=== PATIENT | female | born 1955 | race Caucasian/White ===

== ENCOUNTER → 2019-09-14 10:38 | Outpatient (BNVA) | payer MEDICARE, OTHER, SELFPAY | PROVIDERS: Family Provider Registered Nurse; PCP Registered Nurse; Visit Provider Registered Nurse | DX: E11.9 Type 2 diabetes mellitus without complications (principal) | CPT/HCPCS: 83036 ==

== ENCOUNTER → 2019-10-26 11:11 | Outpatient (BNVA) | payer MEDICARE, OTHER, SELFPAY | PROVIDERS: Family Provider Registered Nurse; PCP Registered Nurse; Visit Provider Registered Nurse | DX: E11.69 Type 2 diabetes mellitus with other specified complication (principal); E78.5 Hyperlipidemia, unspecified; I10 Essential (primary) hypertension; I48.20 Chronic atrial fibrillation, unspecified; Z95.810 Presence of automatic (implantable) cardiac defibrillator; Z79.4 Long term (current) use of insulin; R10.9 Unspecified abdominal pain; R10.11 Right upper quadrant pain; M54.5 Low back pain; E11.65 Type 2 diabetes mellitus with hyperglycemia | CPT/HCPCS: 80053; 81000; 82150; 83690 ==

== ENCOUNTER 2019-11-04 08:19 | Outpatient (CLI) | payer MEDICARE, OTHER, SELFPAY ==
[2019-11-04] MEDS: iohexol 300 mg/mL 50 mL Btl PO (09:18)
--- NOTE | 2019-11-04 09:30 | CT_ITS ---
WS: [id number] CT ABDOMEN TECHNIQUE: Noncontrast CT of the abdomen with coronal and sagittal reformatted images. CLINICAL INFORMATION: RUQ pain COMPARISON: None. DLP: 1014.[address] scans at [facility] use at least one of these dose optimization techniques: automat ed exposure control; mA and/or kV adjustment per patient size (includes targeted exams where dose is matched to clinical indication); or iterative reconstruction. FINDINGS: Noncontrast liver is normal. Cholecystectomy clips. Adrenal glands are normal. Mild bilateral renal c ortical atrophy. Incidental calcified distal azygo esophageal lymph node. Lung bases are well aerated . Noncontrast pancreas is normal. Adrenal glands are normal. Mild bilateral renal cortical atrophy. No hydronephrosis. Normal caliber abdominal aorta. Aortic calcification. Visualized colon is normal in appearance. Normal appendix. No evidence of small or large bowel obstruction. No abdominal lymphadenopathy. Small fat-containing umbilical hernia. CT/CT abdomen wo con [id number] IMPRESSION: 1. Noncontrast liver is normal. Prior cholecystectomy. 2. Lung bases are well aerated. 3. Normal caliber abdominal aorta. No abdominal lymphadenopathy. 4. Mild bilateral renal cortical atrophy. No hydronephrosis. 5. Incidental fat-containing umbilical hernia. 6. No acute abdominal findings.
== END 2019-11-04 08:20 | disposition home or self-care (01) ==
LOC: RADWPI 08:24
PROVIDERS: Family Provider Registered Nurse; PCP Registered Nurse; Visit Provider Registered Nurse
DX: R10.11 Right upper quadrant pain (principal); N26.1 Atrophy of kidney (terminal); K42.9 Umbilical hernia without obstruction or gangrene
CPT/HCPCS: 74150; Q9967

== ENCOUNTER → 2020-03-28 14:14 | Outpatient (BNVA) | payer MEDICARE, OTHER, SELFPAY | PROVIDERS: Family Provider Registered Nurse; PCP Registered Nurse; Visit Provider Registered Nurse | DX: E11.65 Type 2 diabetes mellitus with hyperglycemia (principal); Z79.4 Long term (current) use of insulin; F41.9 Anxiety disorder, unspecified | CPT/HCPCS: 83036 ==

== ENCOUNTER → 2020-10-26 09:25 | Outpatient (BNVA) | payer MEDICARE, OTHER, SELFPAY | PROVIDERS: Family Provider Registered Nurse; PCP Registered Nurse; Visit Provider Registered Nurse | DX: E11.65 Type 2 diabetes mellitus with hyperglycemia (principal); E78.5 Hyperlipidemia, unspecified; I10 Essential (primary) hypertension; F41.9 Anxiety disorder, unspecified; E11.69 Type 2 diabetes mellitus with other specified complication; Z79.4 Long term (current) use of insulin; Z79.899 Other long term (current) drug therapy | CPT/HCPCS: 80053; 80061; 81000; 83036; 85025 ==

== ENCOUNTER → 2020-11-30 10:21 | Outpatient (BNVA) | payer MEDICARE, OTHER, SELFPAY | PROVIDERS: Family Provider Registered Nurse; PCP Registered Nurse; Visit Provider Registered Nurse | DX: R50.9 Fever, unspecified (principal); J06.9 Acute upper respiratory infection, unspecified | CPT/HCPCS: 87635 ==

== ENCOUNTER 2021-05-25 14:24 | Outpatient (CLI) | payer MEDICARE, OTHER, SELFPAY ==
--- NOTE | 2021-05-25 14:15 | USCV_ITS ---
Myah Bonds Age: 66 Gender: F : 1955 Exam Date: 05/25/2021 14:37 Ordering Phys: Celine Valadez MD ([email or web address]) Technologist: FRANCISCO [place] [facility] [place]: DYSPNEA BP: 136 / 80 HR: 94 Rhythm: Sinus Technical Quality: Technically difficult study MEASUREMENTS (Male / Female) Normal Values 2D ECHO LV Diastolic Diameter PLAX 3.3 cm 4.2 - 5.9 / 3.9 - 5.3 cm LV Systolic Diameter PLAX 2.2 cm IVS Diastolic Thickness 1.1 cm 0.6 - 1.0 / 0.6 - 0.9 cm IVS Systolic Thickness 1.4 cm LVPW Diastolic Thickness 1.2 cm 0.6 - 1.0 / 0.6 - 0.9 cm LVPW Systolic Thickness 1.4 cm RV Chamber Size 2.5 cm LVOT Diameter 2.0 cm LV Ejection Fraction 2D Teich 64.1 % LV Ejection Fraction MOD 2C 60.8 % LV Ejection Fraction 2C AL 62.5 % LA Diameter 4.0 cm LA Width 3.5 cm LA Height 4.9 cm RA Width 3.5 cm RA Height 4.7 cm Aorta at Sinotubular Diameter 2.1 cm M-MODE Aortic Annulus Diameter 2.2 cm LA Ao Ratio MM 1.9 MV E Point Septal Separation 0.2 cm DOPPLER AV Peak Velocity 108.0 cm/s LVOT Peak Velocity 85.0 cm/s AV Area Cont Eq vti 2.7 cm squared AV Area Cont Eq pk 2.5 cm squared MV Area PHT 5.0 cm squared MV E' Velocity 73.0 cm/s Mitral E to MV E' Ratio 11.9 Mitral E to LV E' Lateral Ratio 12.0 Mitral E to LV E' Septal Ratio 11.8 TV Peak E Velocity 64.0 cm/s Right Atrial Pressure 3.0 mmHg PV Peak Velocity 105.0 cm/s RV Acceleration Time 0.1 s RV Ejection Time 0.3 s RV AcT/ET 0.3 FINDINGS Left Ventricle Normal left ventricular size and systolic function, EF 64 %. No regional wall motion abnormalities. Mild concentric left ventricular hypertrophy Right Ventricle Normal right ventricular size and systolic function. Catheter/pacemaker wire in the right ventricular cavity. Right Atrium Mildly increased right atrial size. Pacemaker/defibrillator wire is noted Left Atrium Mildly increased left atrial size. Mitral Valve Thickened mitral valve. Mild-moderate mitral valve regurgitation. Aortic Valve Thickened aortic valve. Tricuspid Valve No gross abnormalities noted Pulmonic Valve Pulmonic valve not well visualized. Pericardium No pericardial effusion. Aorta Normal aortic annulus size. CONCLUSIONS Normal left ventricular size and systolic function, EF 64 %. No regional wall motion abnormalities. Mild concentric left ventricular hypertrophy Mild biatrial enlargement. Thickened mitral valve. Mild-moderate mitral valve regurgitation. Thickened aortic valve. Pacemaker/defibrillator wire in the right atrium and right ventricle There is no pericardial effusion. Compared to the study from 04/16/2013 the mitral regurgitation appears to be new Dr Celine Valadez MD FACC (Electronically Signed) Final Date: 26 May 2021 14:49 S
== END 2021-05-25 14:25 | disposition home or self-care (01) ==
LOC: RAD 14:28
PROVIDERS: PCP Registered Nurse; Visit Provider Internal Medicine Cardiovascular Disease
DX: I50.32 Chronic diastolic (congestive) heart failure (principal); R06.00 Dyspnea, unspecified; I08.0 Rheumatic disorders of both mitral and aortic valves; Z95.0 Presence of cardiac pacemaker
CPT/HCPCS: 93306

== ENCOUNTER → 2021-05-26 08:27 | Outpatient (BNVA) | payer MEDICARE, OTHER, SELFPAY | PROVIDERS: PCP Registered Nurse; Visit Provider Registered Nurse | DX: E11.65 Type 2 diabetes mellitus with hyperglycemia (principal); Z79.4 Long term (current) use of insulin | CPT/HCPCS: 80053; 83036 ==

== ENCOUNTER → 2021-07-18 10:39 | Outpatient (BNVA) | payer OTHER, MEDICARE, SELFPAY | PROVIDERS: PCP Registered Nurse; Visit Provider Emergency Medicine | DX: M79.672 Pain in left foot (principal) | CPT/HCPCS: 73630 ==

== ENCOUNTER 2021-07-19 10:38 | Outpatient (CLI) | payer MEDICARE, OTHER, SELFPAY ==
--- NOTE | 2021-07-19 10:52 | XR_ITS ---
WS: [id number] Left foot, 3 views, 07/19/2021 Clinical Data: acute left foot pain Comparison: Left foot, 07/18/2021. Findings: The base of the left third proximal phalanx does not show definite fracture. There is minimal article irregularity in base of the left fourth toe proximal phalanx. This remains suspicious for nondisplac ed fracture. The remainder of the left foot is unremarkable. XR/XR foot LT min 3V* [id number] Impression: Possible fracture of the left fourth toe proximal phalanx.
== END 2021-07-19 10:39 | disposition home or self-care (01) ==
LOC: RAD 10:41
PROVIDERS: PCP Registered Nurse; Visit Provider Emergency Medicine
DX: M79.672 Pain in left foot (principal)
CPT/HCPCS: 73630

== ENCOUNTER 2021-09-11 14:34 | Outpatient (CLI) | payer MEDICARE, OTHER, SELFPAY ==
--- NOTE | 2021-09-11 15:00 | CT_ITS ---
WS: [id number] CT HEAD NONCONTRAST HISTORY: R29.6 - Repeated falls TECHNIQUE: Contiguous axial imaging performed through the brain in 2.5 mm imaging. Bone and soft tiss ue windows. Sagittal and coronal reformats reviewed. All CT scans at [facility] [place] use at least one of these dose optimization techniques: automated exposure control; mA and/or kV adjustment per pa tient size (includes targeted exams where dose is matched to clinical indication); or iterative recon struction. DLP: 933.09 mGy.cm COMPARISON: 01/01/2013 No acute intracranial hemorrhage, midline shift or mass effect. Mild atrophy and mild small vessel ischemic changes in the white matter. No prior infarct. Ventricles: Normal size with no hydrocephalus. No inferior displacement of the cerebellar tonsils. Paranasal sinuses: As visualized are clear. Mastoid air cells: Well pneumatized. Calvarium and scalp: Skull is intact with no soft tissue edema or swelling. CT/CT head wo con* [id number] IMPRESSION: 1. No acute intracranial hemorrhage or edema. 2. Mild atrophy and mild small vessel ischemic disease.
== END 2021-09-11 14:35 | disposition home or self-care (01) ==
LOC: RAD 14:36
PROVIDERS: PCP Registered Nurse; Visit Provider Registered Nurse
DX: R29.6 Repeated falls (principal); R27.8 Other lack of coordination
CPT/HCPCS: 70450

== ENCOUNTER → 2021-09-27 10:14 | Outpatient (BNVA) | payer MEDICARE, OTHER, SELFPAY | PROVIDERS: PCP Registered Nurse; Visit Provider Internal Medicine Cardiovascular Disease | DX: I11.0 Hypertensive heart disease with heart failure (principal); I50.32 Chronic diastolic (congestive) heart failure; I48.20 Chronic atrial fibrillation, unspecified; Z79.899 Other long term (current) drug therapy; I27.20 Pulmonary hypertension, unspecified; E11.69 Type 2 diabetes mellitus with other specified complication; E78.5 Hyperlipidemia, unspecified; Z79.4 Long term (current) use of insulin | CPT/HCPCS: 99214 ==

== ENCOUNTER → 2022-02-16 08:55 | Outpatient (BNVA) | payer MEDICARE, SELFPAY | PROVIDERS: PCP Registered Nurse; Visit Provider Internal Medicine Cardiovascular Disease | DX: Z45.010 Encounter for checking and testing of cardiac pacemaker pulse generator [battery] (principal) | CPT/HCPCS: 93280 ==

== ENCOUNTER → 2022-02-26 09:07 | Outpatient (BNVA) | payer MEDICARE, SELFPAY | PROVIDERS: PCP Registered Nurse; Visit Provider Registered Nurse | DX: E11.65 Type 2 diabetes mellitus with hyperglycemia (principal); Z79.4 Long term (current) use of insulin; I50.32 Chronic diastolic (congestive) heart failure; E66.01 Morbid (severe) obesity due to excess calories; Z68.41 Body mass index [BMI] 40.0-44.9, adult | CPT/HCPCS: 80053; 80061; 83036; 85025 ==

== ENCOUNTER → 2022-04-11 09:53 | Outpatient (BNVA) | payer MEDICARE, OTHER, SELFPAY | PROVIDERS: PCP Registered Nurse; Visit Provider Internal Medicine Cardiovascular Disease | DX: I11.0 Hypertensive heart disease with heart failure (principal); I50.32 Chronic diastolic (congestive) heart failure; Z95.810 Presence of automatic (implantable) cardiac defibrillator; E11.69 Type 2 diabetes mellitus with other specified complication; Z79.84 Long term (current) use of oral hypoglycemic drugs; E78.5 Hyperlipidemia, unspecified; I48.20 Chronic atrial fibrillation, unspecified | CPT/HCPCS: 93005; 99214 ==

== ENCOUNTER → 2022-08-01 15:09 | Outpatient (BNVA) | payer MEDICARE, OTHER, SELFPAY | PROVIDERS: PCP Registered Nurse; Visit Provider Registered Nurse | DX: R39.9 Unspecified symptoms and signs involving the genitourinary system (principal) | CPT/HCPCS: 81000; 87077; 87086; 87184 ==

== ENCOUNTER → 2022-08-27 09:32 | Outpatient (BNVA) | payer MEDICARE, OTHER, SELFPAY | PROVIDERS: PCP Registered Nurse; Visit Provider Registered Nurse | DX: E11.65 Type 2 diabetes mellitus with hyperglycemia (principal); Z79.4 Long term (current) use of insulin | CPT/HCPCS: 80053; 83036 ==

== ENCOUNTER → 2022-10-30 09:32 | Outpatient (BNVA) | payer MEDICARE, OTHER, SELFPAY | PROVIDERS: PCP Registered Nurse; Visit Provider Specialist | DX: I48.91 Unspecified atrial fibrillation (principal); Z95.810 Presence of automatic (implantable) cardiac defibrillator; E78.5 Hyperlipidemia, unspecified; I11.0 Hypertensive heart disease with heart failure; I50.32 Chronic diastolic (congestive) heart failure; Z79.01 Long term (current) use of anticoagulants | CPT/HCPCS: 99214 ==

== ENCOUNTER 2023-01-24 19:05 | Inpatient (IN) | payer MEDICARE, OTHER, SELFPAY ==
[2023-01-24 19:55] VITALS: BMI 40.1
[2023-01-24 21:16] LABS: Glucose Point of Care 122 mg/dL (70-110)
[2023-01-24 21:32] VITALS: BP 128/82; PULSE 98; RESP 19; TEMP 36.7; O2SAT 97
[2023-01-24 21:54] VITALS: BP 128/82; PULSE 105; RESP 15; O2SAT 95
--- NOTE | 2023-01-24 21:58 | PM.HP ---
Providers/Chief Complaint Admitting Physician: Erasto Blanton MD Primary Care Provider: GABRIELA Mae Chief Complaint: a-fib with RVR,Sepsis History of Present Illness Myah Bonds is a 67 year old female with history of type 2 diabetes diabetes, chronic paroxysmal atrial fibrillation not on anticoagulation secondary to history of bleeding, hypertension, morbid obesity ischemic cardiomyopathy s/p ICD hyperlipidemia congestive heart failure presented with complaint of nausea vomiting and weakness off and on since 2 weeks. She has not been able to do her daily chores recently. She was diagnosed with COVID-19 infection 3 weeks ago and since then started having the symptoms. She also complained of urinary discomfort but denied any fever chest pain shortness of breath or diarrhea. Review of Systems Narrative: As per HPI Medications/Allergies Home Medications Medication Instructions Recorded Confirmed Last Taken Type aspirin 81 mg tablet,delayed 81 mg PO QDAY 06/01/19 01/24/23 Unknown History release (Adult Aspirin Regimen) tramadol 50 mg tablet 50 mg PO BID PRN pain 5 days #10 06/23/21 01/24/23 Unknown Rx tabs lorazepam 0.5 mg tablet (Ativan) 0.5 mg PO DAILY PRN anxiety 90 09/19/21 01/24/23 Unknown Rx days #30 tabs hydroxyzine HCl 25 mg tablet 25 mg PO TID PRN itching 10 days 12/26/21 01/24/23 Unknown Rx #30 tabs amlodipine 10 mg tablet 10 mg PO QDAY #90 tabs 02/12/22 01/24/23 Unknown Rx furosemide 20 mg tablet (Lasix) 20 mg PO QAM PRN edema 30 days #30 02/26/22 01/24/23 Unknown Rx tabs pen needle, diabetic 32 gauge x See Rx Instructions .Route 02/26/22 01/24/23 Unknown Rx /32 (BD Ultra-Fine Joelle Pen .COMPLEX #100 ea Needle) potassium chloride 20 mEq oral 20 meq PO QDAY PRN hypokalemia 30 02/26/22 01/24/23 Unknown Rx packet days #30 ea lisinopril 40 mg tablet 40 mg PO QDAY #90 tabs 08/21/22 01/24/23 Unknown Rx clopidogrel 75 mg tablet (Plavix) 75 mg PO QDAY #90 tabs 09/07/22 01/24/23 Unknown Rx liraglutide 0.6 mg/0.1 mL (18 mg/3 1.2 mg (0.2 mL) SUBCUT Q24H 90 09/27/22 01/24/23 Unknown Rx mL) subcutaneous pen injector days #18 mL (Victoza 2-Joseph) metoprolol tartrate 50 mg tablet 75 mg PO BID #270 tabs 10/30/22 01/24/23 Unknown Rx atorvastatin 10 mg tablet 10 mg PO BEDTIME 01/24/23 01/24/23 Unknown History propafenone 225 mg tablet 225 mg PO Q8H 01/24/23 01/24/23 Unknown History sertraline 100 mg tablet 100 mg PO DAILY 01/24/23 01/24/23 Unknown History sitagliptin phosphate 100 mg tablet 100 mg PO DAILY 01/24/23 01/24/23 Unknown History Allergies Allergy/AdvReac Type Severity Reaction Status Date / Time Penicillins Allergy Intermediate blisters Verified 01/17/23 09:00 PFSH Acute PFSH: Medical History Anxiety Benign essential HTN Chronic episodic atrial fibrillation Patient has a history of bleeding complications with warfarin. She blood from the nose, GI tract and in the skin. She decided not to try any other anticoagulant Chronic neck pain Congestive heart failure Diabetes type 2, controlled Heart failure, diastolic, chronic High risk medication use History of stroke reports 8 years ago managed by dr. Rory Gallardo due to type 2 diabetes mellitus ICD (implantable cardioverter-defibrillator) in place Pulmonary hypertension Sleep apnea Surgical History History of permanent cardiac pacemaker placement Hx of section Hx of cholecystectomy Family History Sister Cancer Other Hypertension Denies family history of Diabetes CAD (coronary artery disease) Clotting disorder Dementia Chronic kidney disease (CKD) Suicide Anesthesia complication Bleeding disorder Lung disease Stroke Social History Smoking and tobacco status: never smoked Alcohol intake: never Substance/Drug Use: never Adopted: No Caregiver/support person: No Lives independently: Yes service: No Current occupational status: employed and retired Do you think of yourself as: Straight/Heterosexual Current gender identity: Female Vitals/I&O/Wt Last Vital Signs Temp 98.0 F 01/24/23 21:32 Pulse 105 H 01/24/23 21:54 Resp 15 01/24/23 21:54 BP 128/82 01/24/23 21:54 Pulse Ox 95 01/24/23 21:54 O2 Del Method Room Air 01/24/23 21:32 01/24/23 01/24/23 01/24/23 06:59 14:59 22:59 Output Total 220 / 220 Balance -220 / -220 Weight last 48 hrs Weight 99.427 kg Weight 102.92 kg Physical Exam Narrative: She is alert awake oriented x3 morbidly obese not in acute distress Cardiovascular normal heart sounds irregular rhythm, ICD in place Chest clear to auscultation bilaterally Abdomen soft nontender nondistended normal bowel sounds Extremities trace pitting edema and tenderness in left lower extremity present. A&P Assessment and plan (1) Nausea and vomiting: (2) Generalized weakness: Plan 67-year-old female with multiple medical problems presented with nausea vomiting and weakness since 3 weeks post COVID-19 infection likely secondary to gastritis due to COVID-19 infection. Will give IV Zofran 4 mg every 8 hours IV pantoprazole 40 mg every 12 hours Cardiac diet for now Atrial fibrillation with rate controlled ,resume home medications Subcutaneous Lovenox 40 mg daily for DVT prophylaxis We will repeat UA and then discuss about IV antibiotics for UTI. Needs PT eval in a.m. for generalized weakness. Attestations Medical Necessity Statement*: She might need continued hospitalization for 2 midnights for acute gastritis and UTI for IV antibiotics physical therapy for generalized weakness Time Spent in Patient Care: 30 minutes Coding Level of Care Code Acute Code for Chg Fwd Diagnoses Nausea and vomiting R11.2 Generalized weakness R53.1 Time Spent (min) 30
[2023-01-24 22:00] VITALS: PULSE 95
[2023-01-24] MEDS: pantoprazole 40 mg SDV IVP (22:14)
[2023-01-24] MEDS: sodium chloride 0.9% 1,000 ML 70 ML IV (22:14)
[2023-01-24] MEDS: propafenone 150 mg Tablet 225 MG PO (22:14)
[2023-01-24] MEDS: enoxaparin 40 mg/0.4 mL Syringe SUBCUT (22:14)
[2023-01-25] VITALS (9 sets, daily range): BP systolic 111–143; BP diastolic 65–83; PULSE 94–136; RESP 19–24; TEMP 36.4–37.3; O2SAT 95–96
[2023-01-25] MEDS: propafenone 150 mg Tablet 225 MG PO ×3 (05:12→20:50)
[2023-01-25 05:22] LABS: Basophils # 0.1 10^3/uL (0.0-0.1); Basophils % 0.3 %; Eosinophils # 0.1 10^3/uL (0.0-0.8); Eosinophils % 0.9 %; Hematocrit 34.6 % (36-47); Lymphocytes # 1.7 10^3/uL (0.8-4.8); Lymphocytes % 11.3 %; Mean Corpuscular HGB Conc 32.9 g/dL (30-55); Mean Corpuscular Hemoglobin 29.5 pg (27-33); Mean Corpuscular Volume 89.4 fl (85-98); Mean Platelet Volume 9.1 fL (7.4-10.4); Monocytes % 6.5 %; Neutrophils # 12.05 10^3/uL (1.8-7.7); Neutrophils % 80.5 %; Nucleated Red Blood Cells % 0 %; Platelet Count 311 10^3/cmm (157-399); Red Blood Count 3.87 10^6/uL (3.85-5.65); White Blood Count 14.98 10^3/uL (3.29-11.43)
[2023-01-25 05:45] LABS: Alanine Aminotransferase 12 U/L (0-33); Albumin Level 3.1 g/dL (3.5-5.2); Alkaline Phosphatase 75 U/L (35-105); Anion Gap 15.7 (5-19); Aspartate Amino Transferase 13 U/L (0-32); Blood Urea Nitrogen 12 mg/dL (8-23); Calcium 8.2 mg/dL (8.5-10.5); Carbon Dioxide 22 mmol/L (22-29); Chloride 104 mmol/L (98-107); Creatinine Clr Calc Pharmacy 78.5957; Globulin 2.2 g/dL (1.3-4.6); Glomerular Filtration Rate 83.7 mL/min (90-130); Glucose 146 mg/dL (65-115); Magnesium 1.6 mg/dL (1.7-2.3); Osmolality Calculated 288 mOsm/kg (285-295); Potassium 3.7 mmol/L (3.5-5.1); Sodium 138 mmol/L (136-145); Total Bilirubin 0.5 mg/dL (0.15-1.2); Total Protein 5.3 g/dL (6.6-8.7)
[2023-01-25 05:53] LABS: NT Pro B Type Natriuretic Pept 2711 pg/mL (0-125)
[2023-01-25 06:39] LABS: Glucose Point of Care 147 mg/dL (70-110)
[2023-01-25 08:31] LABS: Add Urine Microscopic? NO; Charge for UA Resulting for Rev
--- NOTE | 2023-01-25 08:54 | PC.CHAP ---
Pastoral Care Encounter/Spiritual Assessment Type of Contact [] Declined event sales manager visit [] Patient/Family/Request visit [] Outpatient visit [] Follow-up visit [] Physician referral [] Code/Alert [x] Routine visit [] Staff referral [] Actively dying [] Patient sleeping [] Family support [] [] Out of room [] Palliative care [] [] Receiving care in room [] Pre-surgical visit [] Trauma [] Long length of stay [] ICU visit [] Other: Relational/Emotional Strength [x] Patient feels connected with others/family/visitors/staff [] Distress [] Loneliness/isolation [] Abandonment Spirituality of Patient [x] Person of Beba [] Attends Mormonism of their Beba [x] Believes in Prayer [] Reads Bible or Mosque materials [] There are Spiritual issues to be addressed Contract Accountant Interventions [x] Prayer [] Active listening [x] Non-anxious presence [x] Spiritual/emotional support [] Crisis/trauma care [] Spiritual counseling [] Bereavement support [] Provided bereavement packet [] Provided Bible/devotional materials [] Provided toy/stuffed animal, coloring book to patient or family member [] Provided Communion [] Anointing/[place] [] Salvation [x] Completed spiritual assessment [] Other: Impact on Illness or Injury [] Angry [] Fearful [] Anxious [] Often cries [] Exhaustion [] Unable to work [] Unable to attend lutheran [] Unable to walk/stand [] Unable to read [] Unable to drive [] Unable to eat/drink [] Unable to sleep [] Unable to be with family [] Patient intubated [] Other: Summary Time spent with patient 5 min
[2023-01-25 08:58] LABS: Bilirubin Urine Neg (Negative); Blood Urine Neg (Negative); Glucose Urine UA Norm (Normal); Ketones Urine 1+ (Negative); Leukocyte Esterase Urine Negative (Negative); Nitrate Urine Negative (Negative); Protein Urine Neg (Negative); Specific Gravity, Urine 1.015 (1.005-1.030); Urine Appearance Clear (CLEAR); Urine Color Yellow (Yellow); Urobilinogen Urine Norm (Negative); pH Urine 5 (5-7)
--- NOTE | 2023-01-25 10:22 | P.PN_ITS ---
Subjective Subjective: This morning patient is doing well Heart rate fluctuating between 1 20-1 30s I will increase her metoprolol dose Continue Rythmol Vitals/I&O/Wt Last Vital Signs Temp 98.2 F 01/25/23 08:00 Pulse 123 H 01/25/23 08:00 Resp 23 H 01/25/23 04:00 BP 131/83 01/25/23 08:00 Pulse Ox 96 01/25/23 08:00 O2 Del Method Room Air 01/25/23 08:00 01/24/23 01/25/23 01/25/23 22:59 06:59 14:59 Intake Total 680 / 680 120 / 120 Output Total 220 / 220 500 / 720 Balance -220 / -220 180 / -40 120 / 120 Weight last 48 hrs Weight 101.333 kg Weight 99.427 kg Weight 102.92 kg Physical Exam Narrative: Patient is awake and alert Sitting at the bedside Heart rate 120s A-fib RVR Hemodynamic stable Currently normal Nonfocal exam Pleasant cooperative No sign of fluid overload Data 01/25/23 05:10 01/25/23 05:10 A&P Assessment and plan (1) Generalized weakness: (2) Nausea and vomiting: (3) Bronchitis due to COVID-19 virus: (4) Atrial fibrillation: (5) Cough: (6) Morbid obesity with BMI of 40.0-44.9, adult: (7) Pulmonary hypertension: (8) Diabetes type 2, controlled: Qualifiers: Diabetes mellitus shelter insulin use: with extermination inspector use Diabetes mellitus complication status: with hyperglycemia Qualified Code(s): E11.65 - Type 2 diabetes mellitus with hyperglycemia; Z79.4 - [facility] (current) use of insulin (9) ICD (implantable cardioverter-defibrillator) in place: (10) Benign essential HTN: Plan A-fib RVR I will increase the dose of metoprolol 100 mg twice daily Continue Rythmol Patient follows up with Dr. Valadez outpatient -19 3 weeks ago Afebrile not requiring oxygen UTI: Continue antibiotic Congestive heart failure without acute exacerbation Patient has underlying pulm hypertension For type 2 diabetes add sliding scale discontinue liraglutide Plan to discharge her over the weekend if heart rate remains stable Full code Check magnesium level I will decrease the dose of lisinopril Attestations Medical Necessity Statement*: Continue medical management Diagnoses Generalized weakness R53.1 Nausea and vomiting R11.2 Bronchitis due to COVID-19 virus U07.1; J40 Atrial fibrillation I48.91 Cough R05.9 Morbid obesity with BMI of 40.0-44.9, adult E66.01; Z68.41 Pulmonary hypertension I27.20 Diabetes type 2, controlled E11.65; Z79.4 Diabetes mellitus shelter insulin use: with shelter use Diabetes mellitus complication status: with hyperglycemia ICD (implantable cardioverter-defibrillator) in place Z95.810 Benign essential HTN I10
[2023-01-25] MEDS: amlodipine 10 mg Tablet PO (10:34)
[2023-01-25] MEDS: pneumococcal (23 valent) SDV 0.5 mL IM (10:34)
[2023-01-25] MEDS: sertraline 100 mg Tablet PO (10:34)
[2023-01-25] MEDS: aspirin 81 mg EC Tablet PO (10:34)
[2023-01-25] MEDS: clopidogrel 75 mg Tablet PO (10:34)
[2023-01-25 11:11] LABS: Glucose Point of Care 171 mg/dL (70-110)
[2023-01-25] MEDS: insulin lispro 100 unit/1 mL SUBCUT (12:29)
[2023-01-25 16:25] LABS: Glucose Point of Care 141 mg/dL (70-110)
[2023-01-25] MEDS: metoprolol tartrate 50 mg Tablet 100 MG PO (20:49)
[2023-01-25] MEDS: enoxaparin 40 mg/0.4 mL Syringe SUBCUT (20:50)
[2023-01-25] MEDS: atorvastatin 40 mg Tablet PO (20:50)
[2023-01-25 21:20] LABS: Glucose Point of Care 155 mg/dL (70-110)
[2023-01-26] VITALS: BP 131/81; PULSE 88; RESP 19; TEMP 36.6; O2SAT 95
[2023-01-26 04:00] VITALS: BP 129/72; PULSE 99; RESP 17; TEMP 36.5; O2SAT 97
[2023-01-26 05:07] LABS: Basophils # 0.1 10^3/uL (0.0-0.1); Basophils % 0.6 %; Eosinophils # 0.2 10^3/uL (0.0-0.8); Eosinophils % 2.2 %; Hematocrit 33.7 % (36-47); Lymphocytes # 1.8 10^3/uL (0.8-4.8); Lymphocytes % 16.8 %; Mean Corpuscular HGB Conc 32.6 g/dL (30-55); Mean Corpuscular Hemoglobin 29.3 pg (27-33); Mean Corpuscular Volume 89.9 fl (85-98); Mean Platelet Volume 9.2 fL (7.4-10.4); Monocytes # 0.7 10^3/uL (0.2-0.9); Monocytes % 6.8 %; Neutrophils # 7.79 10^3/uL (1.8-7.7); Neutrophils % 73.1 %; Nucleated Red Blood Cells % 0 %; Platelet Count 328 10^3/cmm (157-399); Red Blood Count 3.75 10^6/uL (3.85-5.65); Red Cell Distribution Width 12.1 % (12.1-15.1); White Blood Count 10.64 10^3/uL (3.29-11.43)
[2023-01-26 05:23] VITALS: PULSE 86
[2023-01-26 05:28] LABS: Anion Gap 13.3 (5-19); Blood Urea Nitrogen 10 mg/dL (8-23); Calcium 8.4 mg/dL (8.5-10.5); Carbon Dioxide 26 mmol/L (22-29); Chloride 104 mmol/L (98-107); Creatinine Clr Calc Pharmacy 78.5957; Glomerular Filtration Rate 71.8 mL/min (90-130); Glucose 151 mg/dL (65-115); Osmolality Calculated 292 mOsm/kg (285-295); Potassium 3.3 mmol/L (3.5-5.1); Sodium 140 mmol/L (136-145)
[2023-01-26] MEDS: propafenone 150 mg Tablet 225 MG PO ×2 (05:38→13:36)
[2023-01-26 07:06] LABS: Glucose Point of Care 139 mg/dL (70-110)
[2023-01-26 08:00] VITALS: BP 132/79; PULSE 91; TEMP 36.5; O2SAT 95
[2023-01-26] MEDS: lisinopril 10 mg Tablet PO (08:38)
[2023-01-26] MEDS: aspirin 81 mg EC Tablet PO (08:38)
[2023-01-26] MEDS: amlodipine 10 mg Tablet PO (08:38)
[2023-01-26] MEDS: clopidogrel 75 mg Tablet PO (08:38)
[2023-01-26] MEDS: metoprolol tartrate 50 mg Tablet 100 MG PO (08:39)
[2023-01-26] MEDS: sertraline 100 mg Tablet PO (08:39)
--- NOTE | 2023-01-26 09:22 | PC.SOCIAL ---
Pg 2 IMM Explained to pt Pg 2 IMM. No questions voiced. Provided pt a copy. Initialed, dated, & timed a copy & placed in chart.
[2023-01-26 11:07] LABS: Glucose Point of Care 161 mg/dL (70-110)
--- NOTE | 2023-01-26 11:31 | PM.DCS ---
Discharge Providers Date of Admission: 01/24/23 19:05 Date of Discharge: January 26, 2023 Attending Provider at Admission: Erasto Blanton MD Attending Provider at Discharge: Erasto Blanton MD Primary Care Provider: GABRIELA Mea Diagnoses at Discharge Discharge Diagnosis (1) Generalized weakness: Status: Acute (2) Nausea and vomiting: Status: Acute (3) Bronchitis due to COVID-19 virus: Status: Acute (4) Atrial fibrillation: Status: Acute (5) Cough: Status: Acute (6) Morbid obesity with BMI of 40.0-44.9, adult: Status: Acute (7) Pulmonary hypertension: Status: Acute (8) Diabetes type 2, controlled: Status: Acute Qualifiers: Diabetes mellitus intermodal customer service insulin use: with intermodal customer service use Diabetes mellitus complication status: with hyperglycemia Qualified Code(s): E11.65 - Type 2 diabetes mellitus with hyperglycemia; 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 Patient did well with increase of metoprolol to 100 mg twice daily at home she was taking 75 mg twice daily which she was never able to take for recurrent vomiting after suffering from COVID-19 in last 3 weeks. She remained afebrile, A-fib RVR was controlled with use of p.o. medications. She is being discharged with stable hemodynamics with Rythmol 3 times a day regimen which has not been changed, I have increased her metoprolol to 100 mg twice daily No electrolyte imbalance, no chest pain or shortness of breath, remained afebrile. She contracted COVID-19 3 weeks ago, not requiring oxygen Change in medications: Increase metoprolol 100 mg twice daily, decrease the dose of lisinopril to 20 mg daily Physical Exam Narrative: Awake and alert A-fib rate controlled GCS 15 Pleasant and cooperative Euvolemic S1, S2 variable Discharge Data Studies Completed and Pending Pending at discharge Category Date Time Status CDIFF [Clostridium Difficile PCR] Routine Lab 01/25/23 18:47 Uncollected Laboratory Results WBC 10.64 10^3/uL (3.29-11.43) 01/26/23 04:41 RBC 3.75 10^6/uL (3.85-5.65) L 01/26/23 04:41 Hgb 11.00 g/dL (11.27-16.99) L 01/26/23 04:41 Hct 33.7 % (36-47) L 01/26/23 04:41 MCV 89.9 fl (85-98) 01/26/23 04:41 MCH 29.3 pg (27-33) 01/26/23 04:41 MCHC 32.6 g/dL (30-55) 01/26/23 04:41 RDW 12.1 % (12.1-15.1) 01/26/23 04:41 Plt Count 328 10^3/cmm (157-399) 01/26/23 04:41 MPV 9.2 fL (7.4-10.4) 01/26/23 04:41 Neut % (Auto) 73.1 % 01/26/23 04:41 Lymph % (Auto) 16.8 % 01/26/23 04:41 Sanders % (Auto) 6.8 % 01/26/23 04:41 Eos % (Auto) 2.2 % 01/26/23 04:41 Baso % (Auto) 0.6 % 01/26/23 04:41 Neut # (Auto) 7.79 10^3/uL (1.8-7.7) H 01/26/23 04:41 Lymph # (Auto) 1.8 10^3/uL (0.8-4.8) 01/26/23 04:41 Sanders # (Auto) 0.7 10^3/uL (0.2-0.9) 01/26/23 04:41 Eos # (Auto) 0.2 10^3/uL (0.0-0.8) 01/26/23 04:41 Baso # (Auto) 0.1 10^3/uL (0.0-0.1) 01/26/23 04:41 Nucleated RBC % (auto) 0 % 01/26/23 04:41 Nucleated RBCs # 0.0 /100WBC 01/26/23 04:41 Sodium 140 mmol/L (136-145) 01/26/23 04:41 Potassium 3.3 mmol/L (3.5-5.1) L 01/26/23 04:41 Chloride 104 mmol/L (98-107) 01/26/23 04:41 Carbon Dioxide 26 mmol/L (22-29) 01/26/23 04:41 Anion Gap 13.3 (5-19) 01/26/23 04:41 BUN 10 mg/dL (8-23) 01/26/23 04:41 Creatinine 0.8 mg/dL (0.5-0.9) 01/26/23 04:41 GFR Calculation 71.8 mL/min (90-130) L 01/26/23 04:41 Glucose 151 mg/dL (65-115) H 01/26/23 04:41 POC Glucose 161 mg/dL (70-110) H 01/26/23 11:03 Calculated Osmolality 292 mOsm/kg (285-295) 01/26/23 04:41 Calcium 8.4 mg/dL (8.5-10.5) L 01/26/23 04:41 Magnesium 1.6 mg/dL (1.7-2.3) L 01/25/23 05:10 Total Bilirubin 0.5 mg/dL (0.15-1.2) 01/25/23 05:10 AST 13 U/L (0-32) 01/25/23 05:10 ALT 12 U/L (0-33) 01/25/23 05:10 Alkaline Phosphatase 75 U/L (35-105) 01/25/23 05:10 NT-Pro-B Natriuret Pep 2711 pg/mL (0-125) H 01/25/23 05:10 Total Protein 5.3 g/dL (6.6-8.7) L 01/25/23 05:10 Albumin 3.1 g/dL (3.5-5.2) L 01/25/23 05:10 Globulin 2.2 g/dL (1.3-4.6) 01/25/23 05:10 Urine Color Yellow (Yellow) 01/25/23 08:20 Urine Appearance Clear (CLEAR) 01/25/23 08:20 Urine pH 5 (5-7) 01/25/23 08:20 Ur Specific [place] 1.015 (1.005-1.030) 01/25/23 08:20 Urine Protein Neg (Negative) 01/25/23 08:20 Urine Glucose (UA) Norm (Normal) 01/25/23 08:20 Urine Ketones 1+ (Negative) H 01/25/23 08:20 Urine Blood Neg (Negative) 01/25/23 08:20 Urine Nitrate Negative (Negative) 01/25/23 08:20 Urine Bilirubin Neg (Negative) 01/25/23 08:20 Urine Urobilinogen Norm mg/dL (Negative) 01/25/23 08:20 Ur Leukocyte Esterase Negative (Negative) 01/25/23 08:20 Vitals Last Vital Signs Temp 97.7 F 01/26/23 08:00 Pulse 91 01/26/23 08:00 Resp 17 01/26/23 04:00 BP 132/79 01/26/23 08:00 Pulse Ox 95 01/26/23 08:00 O2 Del Method Room Air 01/26/23 08:00 Discharge Plan Discharge Patient Disposition: Home Condition: Stable Prescriptions: New metoprolol tartrate 50 mg Tablet 100 mg PO BID@0900,2100 Qty: 120 3RF Continued tramadol 50 mg tablet 50 mg PO BID PRN (Reason: pain) 5 Days Qty: 10 0RF aspirin [Adult Aspirin Regimen] 81 mg tablet,delayed release (DR/EC) 81 mg PO QDAY hydroxyzine HCl 25 mg tablet 25 mg PO TID PRN (Reason: itching) 10 Days Qty: 30 0RF furosemide [Lasix] 20 mg tablet 20 mg PO QAM PRN (Reason: edema) 30 Days Qty: 30 2RF pen needle, diabetic [BD Ultra-Fine Joelle Pen Needle] 32 gauge x 5/32 needle See Rx Instructions .ROUTE .COMPLEX Qty: 100 0RF Dose Instruction: USE DAILY DIRECTED Rx Instructions: USE DAILY DIRECTED potassium chloride 20 mEq packet 20 meq PO QDAY PRN (Reason: hypokalemia) 30 Days Qty: 30 2RF Victoza 2-Joseph 0.6 mg/0.1 mL (18 mg/3 mL) pen injector 1.2 mg SUBCUT Q24H 90 Days Qty: 18 1RF Rx Instructions: 340B lorazepam [Ativan] 0.5 mg tablet 0.5 mg PO DAILY PRN (Reason: anxiety) 90 Days Qty: 30 0RF Rx Instructions: Will stop xanax, and start ativan. amlodipine 10 mg tablet 10 mg PO QDAY Qty: 90 3RF clopidogrel [Plavix] 75 mg tablet 75 mg PO QDAY Qty: 90 3RF atorvastatin 10 mg Tablet 10 mg PO BEDTIME sertraline 100 mg Tablet 100 mg PO DAILY propafenone 225 mg Tablet 225 mg PO Q8H sitagliptin phosphate 100 mg Tablet 100 mg PO DAILY Changed lisinopril 40 mg tablet 20 mg PO QDAY Qty: 90 3RF Discontinued metoprolol tartrate 50 mg tablet 75 mg PO BID Qty: 270 3RF Discharge Orders: Discharge Order (Routine); Ordered 01/26/23 Ordered By: Erasto Blanton Patient Instructions: Heart Failure (DC), CHF Stoplight, Opioid Safety Discharge Attestations Time Spent in Discharge Care*: greater than 30 min Quality Metrics Clinical Quality Measures [ No reported AMI, CVA or VTE this stay] Coding Level of Care Code Acute Code for Chg Fwd Diagnoses Generalized weakness R53.1 Nausea and vomiting R11.2 Bronchitis due to COVID-19 virus U07.1; J40 Atrial fibrillation I48.91 Cough R05.9 Morbid obesity with BMI of 40.0-44.9, adult E66.01; Z68.41 Pulmonary hypertension I27.20 Diabetes type 2, controlled E11.65; Z79.4 Diabetes mellitus mcfp insulin use: with intermodal customer service use Diabetes mellitus complication status: with hyperglycemia ICD (implantable cardioverter-defibrillator) in place Z95.810 Benign essential HTN I10
[2023-01-26 12:00] VITALS: BP 134/80; PULSE 96; TEMP 36.6; O2SAT 96
[2023-01-26] MEDS: insulin lispro 100 unit/1 mL SUBCUT (12:20)
[2023-01-26 13:26] VITALS: BP 134/80; PULSE 96; TEMP 36.6; O2SAT 96
--- NOTE | 2023-01-26 14:22 | PC.NURSE ---
Discharge Note Patient discharged to [home] via [w/c to POV] accompanied by [friends]. Discharge instructions reviewed with patient and/or shared services representative. Mobile pharmacy medications and/or prescriptions provided. Belongings/home medications returned.
== END 2023-01-26 14:10 | disposition home or self-care (01) | DRG 309 ==
PROVIDERS: Internal Medicine; Admitting Provider Internal Medicine; PCP Registered Nurse; Visit Provider Internal Medicine
DX: I48.0 Paroxysmal atrial fibrillation (principal); I50.32 Chronic diastolic (congestive) heart failure; N39.0 Urinary tract infection, site not specified; Z86.16 Personal history of COVID-19; Z79.891 Long term (current) use of opiate analgesic; Z79.82 Long term (current) use of aspirin; Z79.85 Long-term (current) use of injectable non-insulin antidiabetic drugs; Z79.02 Long term (current) use of antithrombotics/antiplatelets; E11.9 Type 2 diabetes mellitus without complications; I11.0 Hypertensive heart disease with heart failure; E66.01 Morbid (severe) obesity due to excess calories; Z68.38 Body mass index [BMI] 38.0-38.9, adult; I25.5 Ischemic cardiomyopathy; Z95.810 Presence of automatic (implantable) cardiac defibrillator; F41.9 Anxiety disorder, unspecified; G89.29 Other chronic pain; M54.2 Cervicalgia; Z86.73 Personal history of transient ischemic attack (TIA), and cerebral infarction without residual deficits; E78.5 Hyperlipidemia, unspecified; I27.20 Pulmonary hypertension, unspecified; J40 Bronchitis, not specified as acute or chronic; K29.00 Acute gastritis without bleeding; G47.30 Sleep apnea, unspecified
CPT/HCPCS: 36415; 36416; 80048; 80053; 81003; 82962; 83735; 83880; 85025; 90471; 90732; 96372; 96376; C9113; J1650; J1815; J7030

== ENCOUNTER → 2023-04-23 09:52 | Outpatient (BNVA) | payer MEDICARE, OTHER, SELFPAY | PROVIDERS: PCP Registered Nurse; Visit Provider Registered Nurse | DX: L82.1 Other seborrheic keratosis; E11.65 Type 2 diabetes mellitus with hyperglycemia; Z79.4 Long term (current) use of insulin; J98.01 Acute bronchospasm | CPT/HCPCS: 80053; 83036; 85025 ==

== ENCOUNTER → 2023-05-09 09:56 | Outpatient (BNVA) | payer MEDICARE, OTHER, SELFPAY | PROVIDERS: PCP Registered Nurse; Visit Provider Registered Nurse | DX: E11.9 Type 2 diabetes mellitus without complications (principal) | CPT/HCPCS: 80053; 82043 ==

== ENCOUNTER → 2023-05-14 11:46 | Outpatient (BNVA) | payer MEDICARE, OTHER, SELFPAY | PROVIDERS: PCP Registered Nurse; Visit Provider Internal Medicine Cardiovascular Disease | DX: R06.02 Shortness of breath (principal); I10 Essential (primary) hypertension | CPT/HCPCS: 80048; 83880; 99214 ==

== ENCOUNTER 2023-06-05 14:05 | Outpatient (CLI) | payer MEDICARE, OTHER, SELFPAY ==
[2023-06-05 15:04] LABS: Blood Urea Nitrogen 24 mg/dL (8-23); Calcium 8.7 mg/dL (8.5-10.5); Carbon Dioxide 25 mmol/L (22-29); Chloride 105 mmol/L (98-107); Glomerular Filtration Rate 49.5 mL/min (90-130); Glucose 174 mg/dL (65-115); NT Pro B Type Natriuretic Pept 257 pg/mL (0-125); Osmolality Calculated 298 mOsm/kg (285-295); Sodium 140 mmol/L (136-145)
== END 2023-06-05 14:06 | disposition home or self-care (01) ==
LOC: LAB 14:08
PROVIDERS: PCP Registered Nurse; Visit Provider Internal Medicine Cardiovascular Disease
DX: I50.32 Chronic diastolic (congestive) heart failure (principal)
CPT/HCPCS: 80048; 83880

== ENCOUNTER 2023-07-08 11:25 | Outpatient (CLI) | payer MEDICARE, OTHER, SELFPAY ==
[2023-07-08 12:34] LABS: Anion Gap 16.8 (5-19); Blood Urea Nitrogen 32 mg/dL (8-23); Calcium 8.8 mg/dL (8.5-10.5); Carbon Dioxide 24 mmol/L (22-29); Chloride 99 mmol/L (98-107); Glomerular Filtration Rate 40.9 mL/min (90-130); Glucose 227 mg/dL (65-115); NT Pro B Type Natriuretic Pept 839 pg/mL (0-125); Osmolality Calculated 294 mOsm/kg (285-295); Potassium 4.8 mmol/L (3.5-5.1); Sodium 135 mmol/L (136-145)
--- NOTE | 2023-07-24 15:15 | PM.MISC ---
Miscellaneous Note Purpose of Documentation: Got a call from [facility] pharmacy in [place]. They state that patient has been getting filled lisinopril 40 mg every day however her doses was to be 20 according to the prescription that was sent in January. She called to verify with Dr. Blanton had written in the discharge summary. I verified for them that it is supposed to be 20 mg daily and patient was also seen by cardiology in May and it is 20 mg confirmed by cardiology as well. She states that the patient filled 90 tablets on 04/11 2024 and she still has enough tablets. The pharmacy will get this corrected and dispense the correct amount. They were calling to notify us that they have been dispensing the wrong dose. I will have someone reach out from the hospital to the patient to ensure she is on the correct dose.
== END 2023-07-08 11:26 | disposition home or self-care (01) ==
LOC: LAB 11:25
PROVIDERS: PCP Registered Nurse; Visit Provider Internal Medicine Cardiovascular Disease
DX: I50.32 Chronic diastolic (congestive) heart failure (principal)
CPT/HCPCS: 80048; 83880

== ENCOUNTER 2023-08-15 13:28 | Outpatient (CLI) | payer MEDICARE, OTHER, SELFPAY ==
[2023-08-15 14:19] LABS: Anion Gap 15.7 (5-19); Blood Urea Nitrogen 17 mg/dL (8-23); Calcium 8.9 mg/dL (8.5-10.5); Carbon Dioxide 25 mmol/L (22-29); Chloride 103 mmol/L (98-107); Glomerular Filtration Rate 49.5 mL/min (90-130); Glucose 146 mg/dL (65-115); NT Pro B Type Natriuretic Pept 1131 pg/mL (0-125); Osmolality Calculated 292 mOsm/kg (285-295); Potassium 4.7 mmol/L (3.5-5.1); Sodium 139 mmol/L (136-145)
== END 2023-08-15 13:29 | disposition home or self-care (01) ==
LOC: LAB 13:29
PROVIDERS: PCP Registered Nurse; Visit Provider Internal Medicine Cardiovascular Disease
DX: I48.20 Chronic atrial fibrillation, unspecified (principal); I50.32 Chronic diastolic (congestive) heart failure
CPT/HCPCS: 36415; 80048; 83880

== ENCOUNTER 2023-09-19 11:34 | Outpatient (CLI) | payer MEDICARE, OTHER, SELFPAY ==
[2023-09-19 12:34] LABS: Anion Gap 17.9 (5-19); Blood Urea Nitrogen 22 mg/dL (8-23); Calcium 8.8 mg/dL (8.5-10.5); Carbon Dioxide 23 mmol/L (22-29); Chloride 102 mmol/L (98-107); Glomerular Filtration Rate 44.8 mL/min (90-130); Glucose 178 mg/dL (65-115); NT Pro B Type Natriuretic Pept 911 pg/mL (0-125); Osmolality Calculated 294 mOsm/kg (285-295); Potassium 4.9 mmol/L (3.5-5.1); Sodium 138 mmol/L (136-145)
== END 2023-09-19 11:35 | disposition home or self-care (01) ==
PROVIDERS: PCP Registered Nurse; Visit Provider Internal Medicine Cardiovascular Disease
DX: I48.20 Chronic atrial fibrillation, unspecified (principal); I50.32 Chronic diastolic (congestive) heart failure; I10 Essential (primary) hypertension
CPT/HCPCS: 36415; 80048; 83880

== ENCOUNTER → 2023-10-22 09:46 | Outpatient (BNVA) | payer MEDICARE, OTHER, SELFPAY | PROVIDERS: PCP Registered Nurse; Visit Provider Internal Medicine Cardiovascular Disease | DX: Z95.810 Presence of automatic (implantable) cardiac defibrillator (principal); R06.02 Shortness of breath; I48.20 Chronic atrial fibrillation, unspecified; E11.69 Type 2 diabetes mellitus with other specified complication; Z79.84 Long term (current) use of oral hypoglycemic drugs; E78.5 Hyperlipidemia, unspecified; I11.0 Hypertensive heart disease with heart failure; I50.32 Chronic diastolic (congestive) heart failure | CPT/HCPCS: 80048; 83880; 99214 ==

== ENCOUNTER → 2023-10-29 09:39 | Outpatient (BNVA) | payer MEDICARE, OTHER, SELFPAY | PROVIDERS: PCP Registered Nurse; Visit Provider Registered Nurse | DX: E11.9 Type 2 diabetes mellitus without complications (principal); E11.65 Type 2 diabetes mellitus with hyperglycemia; Z79.4 Long term (current) use of insulin | CPT/HCPCS: 80053; 83036 ==

== ENCOUNTER → 2023-11-19 09:06 | Outpatient (BNVA) | payer MEDICARE, OTHER, SELFPAY | PROVIDERS: PCP Registered Nurse; Visit Provider Registered Nurse | DX: N28.9 Disorder of kidney and ureter, unspecified (principal) | CPT/HCPCS: 80053 ==

== ENCOUNTER → 2024-01-09 08:16 | Outpatient (BNVA) | payer MEDICARE, OTHER, SELFPAY | PROVIDERS: PCP Registered Nurse; Visit Provider Registered Nurse | DX: Z95.810 Presence of automatic (implantable) cardiac defibrillator (principal); I48.20 Chronic atrial fibrillation, unspecified | CPT/HCPCS: 93005 ==

== ENCOUNTER → 2024-01-16 09:20 | Outpatient (BNVA) | payer MEDICARE, OTHER, SELFPAY | PROVIDERS: PCP Registered Nurse; Visit Provider Nurse Practitioner Family | DX: I48.20 Chronic atrial fibrillation, unspecified (principal); Z95.0 Presence of cardiac pacemaker | CPT/HCPCS: 99214 ==

== ENCOUNTER → 2024-04-22 09:30 | Outpatient (BNVA) | payer MEDICARE, OTHER, SELFPAY | PROVIDERS: PCP Registered Nurse; Visit Provider Nurse Practitioner Family | DX: I48.20 Chronic atrial fibrillation, unspecified (principal); I11.0 Hypertensive heart disease with heart failure; I50.32 Chronic diastolic (congestive) heart failure; Z95.0 Presence of cardiac pacemaker | CPT/HCPCS: 36415; 80048; 83880; 99214 ==

== ENCOUNTER → 2024-06-12 10:20 | Outpatient (BNVA) | payer MEDICARE, OTHER, SELFPAY | PROVIDERS: PCP Registered Nurse; Visit Provider Registered Nurse | DX: E11.9 Type 2 diabetes mellitus without complications (principal); Z79.899 Other long term (current) drug therapy | CPT/HCPCS: 80053; 81000; 82607; 83036; 85025 ==

== ENCOUNTER → 2024-07-03 09:06 | Outpatient (BNVA) | payer MEDICARE, OTHER, SELFPAY | PROVIDERS: PCP Registered Nurse; Visit Provider Registered Nurse | DX: E87.6 Hypokalemia (principal) | CPT/HCPCS: 80053 ==

== ENCOUNTER → 2024-10-22 13:50 | Outpatient (BNVA) | payer MEDICARE, OTHER, SELFPAY | PROVIDERS: PCP Registered Nurse; Visit Provider Internal Medicine Cardiovascular Disease | DX: I48.20 Chronic atrial fibrillation, unspecified (principal); Z95.810 Presence of automatic (implantable) cardiac defibrillator; E11.69 Type 2 diabetes mellitus with other specified complication; E78.5 Hyperlipidemia, unspecified; I11.0 Hypertensive heart disease with heart failure; I50.32 Chronic diastolic (congestive) heart failure; Z79.85 Long-term (current) use of injectable non-insulin antidiabetic drugs | CPT/HCPCS: 99214 ==

== ENCOUNTER → 2024-10-27 10:58 | Outpatient (BNVA) | payer MEDICARE, OTHER, SELFPAY | PROVIDERS: PCP Registered Nurse; Visit Provider Registered Nurse | DX: E11.9 Type 2 diabetes mellitus without complications (principal) | CPT/HCPCS: 80048; 83036 ==

== ENCOUNTER → 2024-11-10 10:31 | Outpatient (BNVA) | payer MEDICARE, OTHER, SELFPAY | PROVIDERS: PCP Registered Nurse; Visit Provider Internal Medicine Cardiovascular Disease | DX: Z45.018 Encounter for adjustment and management of other part of cardiac pacemaker (principal) | CPT/HCPCS: 93296 ==

== ENCOUNTER → 2025-03-11 14:24 | Outpatient (BNVA) | payer MEDICARE, OTHER, SELFPAY | PROVIDERS: PCP Registered Nurse; Visit Provider Registered Nurse | DX: J11.1 Influenza due to unidentified influenza virus with other respiratory manifestations (principal) | CPT/HCPCS: 87400 ==

== ENCOUNTER 2025-03-24 13:30 | Outpatient (CLI) | payer MEDICARE, OTHER, SELFPAY ==
--- NOTE | 2025-03-24 13:40 | MM_ITS ---
WS: [id number] BILATERAL 3D TOMOSYNTHESIS DIGITAL SCREENING MAMMOGRAPHY WITH CAD CLINICAL INFORMATION: SCREENING HISTORY: Screening mammogram. No current complaints. COMPARISON: 2019 TECHNIQUE: Bilateral CC and MLO views. FINDINGS: The breasts are composed of heterogeneous fibroglandular density tissue, which can limit the detection of small underlying mass lesions. No suspicious mass, asymmetry, calcifications, or architectural distortion. No evidence of malignancy. Punctate and lucent centered calcifications. Secretory calcific ations. MM/MM [facility] tomosynthesis [id number] IMPRESSION: DENSITY: The breasts are heterogeneously dense, which may obscure small masses. BI-RADS: 2 - Benign FOLLOW UP: 1 Year Follow-up Recommend return to annual screening mammography.
== END 2025-03-24 13:31 | disposition home or self-care (01) ==
LOC: MOBLMAM 13:31
PROVIDERS: PCP Registered Nurse; Visit Provider Registered Nurse
DX: Z12.31 Encounter for screening mammogram for malignant neoplasm of breast (principal); R92.333 Mammographic heterogeneous density, bilateral breasts; R92.323 Mammographic fibroglandular density, bilateral breasts; R92.1 Mammographic calcification found on diagnostic imaging of breast
CPT/HCPCS: 77063; 77067

== ENCOUNTER → 2025-04-14 08:11 | Outpatient (BNVA) | payer MEDICARE, OTHER, SELFPAY | PROVIDERS: PCP Registered Nurse; Visit Provider Registered Nurse | DX: E11.65 Type 2 diabetes mellitus with hyperglycemia (principal); Z79.4 Long term (current) use of insulin | CPT/HCPCS: 80053; 80061; 83036; 85025 ==

== ENCOUNTER → 2025-04-26 11:33 | Outpatient (BNVA) | payer MEDICARE, OTHER, SELFPAY | PROVIDERS: PCP Registered Nurse; Visit Provider Nurse Practitioner Family | DX: R94.31 Abnormal electrocardiogram [ECG] [EKG] (principal); I48.20 Chronic atrial fibrillation, unspecified | CPT/HCPCS: 93005; 99214 ==